=== PATIENT | female | born 1950 | race Caucasian/White ===

== ENCOUNTER 2018-06-09 09:46 | Day surgery (SDC) | payer BC ==
[2018-06-08 10:31] VITALS: BMI 29.2
[2018-06-09 11:58] VITALS: TEMP 97.6
[2018-06-09 13:05] VITALS: BP 142/73; PULSE 83
--- NOTE | 2018-06-12 12:13 | PATH ---
Surgical Pathology Report Patient Name: DEVAN GLOVER [facility]. Rec. #: [id number] /Age/Gender: 1950 (Age: 67) / F Account: [id number] Location: U-ENDOSCOPY Taken: 06/09/2018 Received: 06/09/2018 Reported: 06/12/2018 Physicians: Fany Landeros M.D. Specimen(s) Received A: DUODENUM BULB B: ANTRUM C: RIGHT COLON POLYP Clinical History Anemia and screening Postoperative diagnosis: GERD, atrophic gastritis, diverticulosis, right colon polyp Final Diagnosis A. DUODENUM, SECOND PORTION AND BULB, BIOPSY: DUODENAL MUCOSA WITH NO PATHOLOGIC CHANGES. NO HISTOLOGIC EVIDENCE OF GLUTEN SENSITIVE ENTEROPATHY (CELIAC SPRUE) IDENTIFIED. B. STOMACH, ANTRUM, BIOPSY: GASTRIC MUCOSA WITH FOCAL ULCERATION, ACUTE AND CHRONIC INFLAMMATION, AND REACTIVE CHANGES. IMMUNOSTAIN FOR H. PYLORI IS NEGATIVE. C. COLON, RIGHT, BIOPSY: HYPERPLASTIC POLYP. Electronically Signed Crow Bingham M.D. Gross Description A. Received in formalin, labeled "second portion of duodenum and bulb" are 3 ferris, irregular portions of soft tissue ranging from 0.4-0.6 cm. in greatest dimension. The specimens are submitted in toto in one cassette. B. Received in formalin, labeled "antrum biopsy" are 4 ferris, irregular portions of soft tissue ranging from 0.1-0.4 cm. in greatest dimension. The specimens are submitted in toto in one cassette. C. Received in formalin, labeled "right colon polyp biopsy" are 6 ferris, irregular portions of soft tissue ranging from 0.1-0.4 cm. in greatest dimension. The specimens are submitted in toto in one cassette. 06/09/2018 saudi06/09/2018
== END 2018-06-09 13:06 | disposition home or self-care (01) ==
LOC: JASU-ENDO 09:46
PROVIDERS: ATTEND Internal Medicine Gastroenterology
PROC: 0DB68ZX Excision of Stomach, Via Natural or Artificial Opening Endoscopic, Diagnostic (ICD-10-PCS; 2018-06-09)
PROC: 0DBK8ZX Excision of Ascending Colon, Via Natural or Artificial Opening Endoscopic, Diagnostic (ICD-10-PCS; principal; 2018-06-09 10:30)
DX: Z12.11 Encounter for screening for malignant neoplasm of colon (principal); D12.2 Benign neoplasm of ascending colon; K57.30 Diverticulosis of large intestine without perforation or abscess without bleeding; K64.8 Other hemorrhoids; D64.9 Anemia, unspecified; K21.0 Gastro-esophageal reflux disease with esophagitis; K22.10 Ulcer of esophagus without bleeding; K29.70 Gastritis, unspecified, without bleeding
CPT/HCPCS: 88305-TC; 88342-TC

== ENCOUNTER 2020-02-06 15:26 | Emergency (ER) | payer BC | END 2020-02-06 15:38 | disposition home or self-care (01) | LOC: JVIRT 15:26 | DX: Z03.818 Encounter for observation for suspected exposure to other biological agents ruled out (principal) | CPT/HCPCS: C9803; Q3014-GT; U0003 ==

== ENCOUNTER 2021-05-01 09:35 | Emergency (ER) | payer BC ==
[2021-05-01 10:11] VITALS: BP 156/87; PULSE 96; TEMP 98.6; BMI 28.7
[2021-05-01] MEDS ORDERED: oxyCODONE HCL 5 MG TABLET PO ONE (10:23)
[2021-05-01] MEDS ORDERED: oxyCODONE HCL 5 MG TABLET ONE (10:29)
== END 2021-05-01 12:32 | disposition home or self-care (01) ==
LOC: FER 09:35
DX: M25.562 Pain in left knee (principal); W01.0XXA Fall on same level from slipping, tripping and stumbling without subsequent striking against object, initial encounter
CPT/HCPCS: 73562-TC-LT-FY; 73610-TC-LT-FY; 99284-25

== ENCOUNTER 2021-07-28 02:01 | Observation (INO) | payer BC, MEDICARE ==
[2021-07-28] MEDS ORDERED: ONDANSETRON 4 MG/2 ML VIAL ONE ×2 (02:11→04:19)
[2021-07-28] MEDS ORDERED: SODIUM CHLORIDE 0.9% 1000 ML INFUS.BAG IV ONE ×2 (02:16→04:42)
[2021-07-28] MEDS ORDERED: ONDANSETRON 4 MG/2 ML VIAL IVPUSH ONE ×2 (02:16→04:42)
[2021-07-28 02:27] VITALS: BMI 27.8
[2021-07-28] MEDS ORDERED: morphine SULFATE 4 MG/ML VIAL ONE (02:27)
[2021-07-28] MEDS ORDERED: morphine CARPU-JECT 4 MG/1 ML DISP.SYRIN IVPUSH ONE (02:29)
[2021-07-28 02:55] LABS: BASO % 0.4 % (0-2.0); HEMATOCRIT 39.9 % (32.4-45.2); HEMOGLOBIN 12.9 GM/dL (10.7-15.3); LYMPH % 7.7 % (8-40); MCHC 32.4 g/dl (32.0-36.0); MEAN CELL VOLUME 86.3 fl (80-96); MEAN PLT VOLUME 9.4 fl (7.5-11.1); MONO % 1.6 % (3.8-10.2); NEUT % 90.3 % (42.8-82.8); PLATELET COUNT 348 10^3/uL (134-434); RBC 4.62 M/mm3 (3.60-5.2); WHITE BLOOD COUNT 11.9 K/mm3 (4.0-10.0)
[2021-07-28 03:24] LABS: CALCIUM 10.2 mg/dL (8.5-10.1)
[2021-07-28 03:25] LABS: BLOOD UREA NITROGEN 25.4 mg/dL (7-18)
[2021-07-28 03:29] LABS: BILIRUBIN,TOTAL 0.6 mg/dL (0.2-1); TOT PROT 7.5 g/dl (6.4-8.2)
[2021-07-28 03:45] LABS: LACTIC ACID 2.3 mmol/L (0.4-2.0)
[2021-07-28] MEDS ORDERED: MAG HYDROX/AL HYDROX/SIMETH 30 ML UNIT-DOSE CUP PO ONE (04:58)
[2021-07-28] MEDS ORDERED: ACETAMINOPHEN 1000 MG/100 ML BAG IVPB ONE (04:58)
[2021-07-28] MEDS ORDERED: FAMOTIDINE 20 MG/50 ML IVPB 20 MG/50 ML MG IVPB ONE ×2 (04:58→05:06)
[2021-07-28] MEDS ORDERED: CIPROFLOXACIN 400 MG/D5W 400 MG/200 ML IVPB IVPB ONE ×2 (04:59→05:07)
[2021-07-28] MEDS ORDERED: MAG HYDROX/AL HYDROX/SIMETH 30 ML UNIT-DOSE CUP ONE (05:07)
[2021-07-28] MEDS ORDERED: ACETAMINOPHEN INJECTION 100 ML IVPB ONE (05:13)
[2021-07-28 06:02] LABS: EPI CELLS 7 /uL (0-25.1); HYALINE CASTS 2 /uL (0-3.1); PH,URINE 6.5 (5.0-8.0); URINE APPEARANCE CLEAR; URINE BACTERIA 5 /uL (0-1359); URINE BILIRUBIN NEGATIVE (NEGATIVE); URINE COLOR YELLOW; URINE GLUCOSE (UA) NEGATIVE (NEGATIVE); URINE KETONE 1+ (NEGATIVE); URINE LEUK ESTERASE NEGATIVE (NEGATIVE); URINE NITRITE NEGATIVE (NEGATIVE); URINE PROTEIN 2+ (NEGATIVE); URINE RBC 3 /uL (0-23.9); URINE UROBILINOGEN 0.2 mg/dL (0.2-1.0); URINE WBC 20 /uL (0-25.8)
[2021-07-28] MEDS: DEXTROSE 5%-0.45% SALINE 1,000 ML IV SCH (06:50)
[2021-07-28] MEDS ORDERED: ONDANSETRON 4 MG/2 ML VIAL IVPUSH PRN (10:00)
[2021-07-28] MEDS: ALLOPURINOL 100 MG TABLET (FP) PO SCH (10:18)
[2021-07-28] MEDS: LEVOTHYROXINE NA 75 MCG TABLET (FP) PO SCH (10:18)
[2021-07-28] MEDS: VERAPAMIL HCL 240 MG E.R. TABLET PO SCH (10:18)
[2021-07-28] MEDS: ASPIRIN COATED 81 MG TABLET.EC PO SCH (10:19)
[2021-07-28] MEDS: ACETAMINOPHEN 1000 MG/100 ML BAG IVPB SCH ×3 (10:52→22:07)
[2021-07-28] MEDS ORDERED: ACETAMINOPHEN 1000 MG/100 ML BAG IVPB PRN (11:00)
[2021-07-28] MEDS: ENOXAPARIN NA (PORCINE) 40 MG/0.4 ML DISP.SYRIN SQ SCH (11:43)
[2021-07-28] MEDS ORDERED: IBUPROFEN 400 MG TABLET (FP) PO ONE (14:04)
[2021-07-28] MEDS ORDERED: DEXTROSE 5%-WATER 100 ML IVPB ONE (17:01)
[2021-07-28] MEDS: CEFTRIAXONE 2 GM in DEXTROSE 5%-WATER 2 GM/100 ML BAG IVPB SCH (17:38)
[2021-07-28] MEDS ORDERED: LOSARTAN POTASSIUM 50 MG TABLET PO SCH ×3 (22:00→22:01)
[2021-07-28] MEDS ORDERED: GABAPENTIN 300 MG CAPSULE PO SCH (22:00)
[2021-07-28] MEDS ORDERED: MELATONIN 5 MG TABLETS PO ONE (22:30)
[2021-07-29] MEDS: ACETAMINOPHEN 1000 MG/100 ML BAG IVPB SCH ×2 (05:49→10:17)
[2021-07-29] MEDS: DEXTROSE 5%-0.45% SALINE 1,000 ML IV SCH (05:50)
[2021-07-29] MEDS: LEVOTHYROXINE NA 75 MCG TABLET (FP) PO SCH (06:07)
[2021-07-29 07:39] LABS: HEMOGLOBIN 10.8 G/dL (10.7-15.3); MCH 28.8 pg (25.7-33.7); MCHC 32.8 g/dl (32.0-36.0); MEAN CELL VOLUME 87.7 fl (80-96); MEAN PLT VOLUME 9.3 fl (7.5-11.1); PLATELET COUNT 251.2 10^3/uL (134-434); RBC 3.76 10^6/uL (3.60-5.2); RDW 15.6 % (11.6-15.6); WHITE BLOOD COUNT 9.2 10^3/uL (4.0-10.8)
[2021-07-29 07:48] LABS: BILIRUBIN,TOTAL 0.4 mg/dl (0.2-1); TOT PROT 5.2 g/dl (6.4-8.2)
[2021-07-29] MEDS ORDERED: DEXTROSE 5%-WATER 100 ML IVPB ONE (10:13)
[2021-07-29] MEDS: VERAPAMIL HCL 240 MG E.R. TABLET PO SCH (10:21)
[2021-07-29] MEDS: CEFTRIAXONE 2 GM in DEXTROSE 5%-WATER 2 GM/100 ML BAG IVPB SCH (10:21)
[2021-07-29] MEDS: ALLOPURINOL 100 MG TABLET (FP) PO SCH (10:21)
[2021-07-29] MEDS: ENOXAPARIN NA (PORCINE) 40 MG/0.4 ML DISP.SYRIN SQ SCH (10:21)
[2021-07-29] MEDS: ASPIRIN COATED 81 MG TABLET.EC PO SCH (10:22)
[2021-07-29] MEDS ORDERED: LOPERAMIDE HCL 2 MG CAPSULE PO ONE (10:25)
[2021-07-29 14:12] VITALS: BP 135/66; PULSE 95; TEMP 98.4
== END 2021-07-29 15:13 | disposition home or self-care (01) ==
LOC: FER 02:01 → FM/S 06:23
PROVIDERS: ADMIT Internal Medicine; ATTEND Nurse Practitioner Acute Care
PROC: 3E03329 Introduction of Other Anti-infective into Peripheral Vein, Percutaneous Approach (ICD-10-PCS; principal; 2021-07-28)
PROC: 3E033GC Introduction of Other Therapeutic Substance into Peripheral Vein, Percutaneous Approach (ICD-10-PCS; 2021-07-28)
PROC: 3E023GC Introduction of Other Therapeutic Substance into Muscle, Percutaneous Approach (ICD-10-PCS; 2021-07-28)
PROC: 3E033NZ Introduction of Analgesics, Hypnotics, Sedatives into Peripheral Vein, Percutaneous Approach (ICD-10-PCS; 2021-07-28)
PROC: 3E0337Z Introduction of Electrolytic and Water Balance Substance into Peripheral Vein, Percutaneous Approach (ICD-10-PCS; 2021-07-28)
DX: K52.9 Noninfective gastroenteritis and colitis, unspecified (principal); R11.10 Vomiting, unspecified; R10.13 Epigastric pain; I10 Essential (primary) hypertension; E03.9 Hypothyroidism, unspecified; M10.9 Gout, unspecified; Z29.8 Encounter for other specified prophylactic measures; D72.829 Elevated white blood cell count, unspecified
CPT/HCPCS: 0241U-QW; 36415; 74177-TC; 76705-TC; 80053; 81003; 83605; 83690; 84484; 85025; 85027; 87807; 93005; 96365; 96366; 96367; 96372; 96375; 96376; 99285-25; C9803-CS; G0378; Q9967; U0003; U0005

== ENCOUNTER 2022-11-05 03:53 | Day surgery (SDC) | payer OTHER, MEDICARE ==
[2022-11-04 09:03] VITALS: BMI 29.8
[2022-11-05] MEDS ORDERED: LIDOCAINE HCL 1%, 10 MG/ML (20ML VIAL) INF ONE ×2 (13:47)
[2022-11-05] MEDS ORDERED: PROPOFOL 20 ML ONE (15:30)
[2022-11-05] MEDS ORDERED: MIDAZOLAM HCL 2 MG/2 ML SINGLE DOSE VIAL ONE (15:30)
[2022-11-05] MEDS ORDERED: KETOROLAC TROMETHAMINE 30 MG/1 ML VIAL ONE (15:49)
[2022-11-05] MEDS ORDERED: ONDANSETRON 4 MG/2 ML VIAL ONE (15:49)
[2022-11-05] MEDS ORDERED: DEXAMETHASONE SOD PHOSPHATE 4 MG/1 ML VIAL ONE (15:49)
[2022-11-05] MEDS ORDERED: ONDANSETRON 4 MG/2 ML VIAL IVPUSH PRN (16:18)
[2022-11-05] MEDS ORDERED: ACETAMINOPHEN INJECTION 100 ML IVPB ONE (16:18)
[2022-11-05] MEDS ORDERED: ACETAMINOPHEN 325 MG TABLET (FP) PO PRN (16:18)
[2022-11-05] MEDS ORDERED: ACETAMINOPHEN 1000 MG/100 ML BAG IVPB ONE ×2 (16:19→16:30)
[2022-11-05] MEDS ORDERED: LACTATED RINGERS SOLUTION 1,000 ML IV SCH (16:30)
[2022-11-05 17:09] LABS: INR 1.03 (0.83-1.09); PROTHROMBIN TIME (PATIENT) 11.9 SEC (9.7-13.0)
[2022-11-05 17:52] VITALS: RESP 18
[2022-11-05 18:57] VITALS: BP 128/64; PULSE 91; TEMP 98.4
== END 2022-11-05 18:30 | disposition home or self-care (01) ==
LOC: JASU-SURG 03:53
PROVIDERS: ATTEND Surgery
PROC: 03BT0ZX Excision of Left Temporal Artery, Open Approach, Diagnostic (ICD-10-PCS; principal; 2022-11-05 15:30)
DX: R51.9 Headache, unspecified (principal)
CPT/HCPCS: 36415; 85610; 88305-TC; 93005; 93010; 94760

== ENCOUNTER 2022-11-29 19:40 | Emergency (ER) | payer OTHER, MEDICARE ==
[2022-11-29 19:53] VITALS: TEMP 98.2; BMI 28.3
[2022-11-29] MEDS ORDERED: FAMOTIDINE 20 MG/50 ML IVPB 20 MG/50 ML MG IVPB ONE ×2 (20:04→20:11)
[2022-11-29] MEDS ORDERED: SODIUM CHLORIDE 1,000 ML IV STA (20:04)
[2022-11-29] MEDS ORDERED: ONDANSETRON 4 MG/2 ML VIAL IVPUSH ONE (20:05)
[2022-11-29] MEDS ORDERED: ONDANSETRON 4 MG/2 ML VIAL ONE (20:25)
[2022-11-29 20:33] LABS: HEMATOCRIT 41.7 % (32.4-45.2); HEMOGLOBIN 13.6 G/dL (10.7-15.3); MCH 29.1 pg (25.7-33.7); MCHC 32.5 g/dl (32.0-36.0); MEAN CELL VOLUME 89.2 fl (80-96); MEAN PLT VOLUME 8.6 fl (7.5-11.1); PLATELET COUNT 320.5 10^3/uL (134-434); RBC 4.67 10^6/uL (3.60-5.2); RDW 15.4 % (11.6-15.6); WHITE BLOOD COUNT 13.7 10^3/uL (4.0-10.8)
[2022-11-29 20:52] LABS: ALBUMIN 4.2 g/dl (3.4-5.0); BLOOD UREA NITROGEN 30.6 mg/dl (7-18); CREATININE 1.1 mg/dl (0.6-1.3); POTASSIUM 3.9 mmol/L (3.5-5.1); SGOT/AST 18.9 U/L (15-37); SGPT/ALT 18.7 U/L (7-52); TOT PROT 6.5 g/dl (6.4-8.2)
[2022-11-29] MEDS ORDERED: ACETAMINOPHEN 1000 MG/100 ML BAG IVPB ONE (21:07)
[2022-11-29] MEDS ORDERED: ACETAMINOPHEN INJECTION 100 ML IVPB ONE (21:09)
[2022-11-29 21:11] LABS: MAGNESIUM 1.5 mg/dL (1.8-2.4)
[2022-11-29] MEDS ORDERED: MAGNESIUM 1GM/D5W - 1 GM/100 ML IVPB IVPB ONE ×2 (21:23→21:37)
[2022-11-29 22:23] LABS: BILIRUBIN,TOTAL 1.1 mg/dL (0.2-1)
[2022-11-29] MEDS ORDERED: SODIUM CHLORIDE 0.9% 500 ML INFUS.BAG IV ONE (22:32)
[2022-11-29 23:15] VITALS: BP 109/60; PULSE 106; RESP 18
== END 2022-11-30 00:32 | disposition home or self-care (01) ==
LOC: FER 19:40
PROC: 3E033GC Introduction of Other Therapeutic Substance into Peripheral Vein, Percutaneous Approach (ICD-10-PCS; principal; 2022-11-29)
PROC: 3E03329 Introduction of Other Anti-infective into Peripheral Vein, Percutaneous Approach (ICD-10-PCS; 2022-11-29)
PROC: 3E033GC Introduction of Other Therapeutic Substance into Peripheral Vein, Percutaneous Approach (ICD-10-PCS; 2022-11-29)
PROC: 3E033GC Introduction of Other Therapeutic Substance into Peripheral Vein, Percutaneous Approach (ICD-10-PCS; 2022-11-29)
PROC: 3E0337Z Introduction of Electrolytic and Water Balance Substance into Peripheral Vein, Percutaneous Approach (ICD-10-PCS; 2022-11-29)
DX: R11.2 Nausea with vomiting, unspecified (principal); R10.9 Unspecified abdominal pain; Z20.822 Contact with and (suspected) exposure to COVID-19
CPT/HCPCS: 0241U-QW; 36415; 71045-TC-FY; 76705-TC; 80053; 83690; 83735; 84484; 85027; 93005; 93010; 99285-25

== ENCOUNTER 2022-11-30 15:42 | Inpatient (IN) | payer OTHER, MEDICARE ==
[2022-11-30] MEDS ORDERED: FAMOTIDINE 20 MG/50 ML IVPB 20 MG/50 ML MG IVPB ONE ×2 (16:34→16:41)
[2022-11-30] MEDS ORDERED: SODIUM CHLORIDE 1,000 ML IV ONE (16:34)
[2022-11-30] MEDS ORDERED: MAG HYDROX/AL HYDROX/SIMETH -MYLANTA- ORAL SUSPENSION PO ONE (16:34)
[2022-11-30] MEDS ORDERED: MAG HYDROX/AL HYDROX/SIMETH 30 ML UNIT-DOSE CUP ONE (16:41)
[2022-11-30 16:52] LABS: HEMATOCRIT 39.7 % (32.4-45.2); MCH 29.6 pg (25.7-33.7); MCHC 32.6 g/dl (32.0-36.0); MEAN CELL VOLUME 90.6 fl (80-96); MEAN PLT VOLUME 8.8 fl (7.5-11.1); PLATELET COUNT 302.6 10^3/uL (134-434); RBC 4.38 10^6/uL (3.60-5.2); RDW 15.6 % (11.6-15.6); WHITE BLOOD COUNT 17.9 10^3/uL (4.0-10.8)
[2022-11-30] MEDS ORDERED: ONDANSETRON 4 MG/2 ML VIAL IVPUSH ONE (17:01)
[2022-11-30] MEDS ORDERED: ONDANSETRON 4 MG/2 ML VIAL ONE (17:07)
[2022-11-30 17:08] LABS: ALBUMIN 3.9 g/dl (3.4-5.0); BLOOD UREA NITROGEN 24.8 mg/dl (7-18); CALCIUM 9.5 mg/dl (8.5-10.1); CREATININE 1.2 mg/dl (0.6-1.3); POTASSIUM 4.2 mmol/L (3.5-5.1); SGOT/AST 19.8 U/L (15-37); SGPT/ALT 18.6 U/L (7-52); TOT PROT 6.1 g/dl (6.4-8.2)
[2022-11-30 17:24] LABS: PLATELET ESTIMATE ADEQUATE
[2022-11-30] MEDS ORDERED: PANTOPRAZOLE SODIUM 40 MG VIAL IVPUSH ONE (17:41)
[2022-11-30] MEDS ORDERED: ACETAMINOPHEN 1000 MG/100 ML BAG IVPB ONE (17:41)
[2022-11-30] MEDS ORDERED: ACETAMINOPHEN INJECTION 100 ML IVPB ONE ×2 (18:48→18:49)
[2022-11-30] MEDS ORDERED: PANTOPRAZOLE SODIUM 40 MG VIAL ONE (18:49)
[2022-11-30] MEDS ORDERED: morphine CARPU-JECT 2 MG/1 ML DISP.SYRIN IVPUSH ONE (18:53)
[2022-11-30 18:54] LABS: BILIRUBIN,TOTAL 1.3 mg/dL (0.2-1)
[2022-11-30] MEDS ORDERED: morphine SULFATE 4 MG/ML VIAL ONE (18:55)
[2022-11-30] MEDS: SODIUM CHLORIDE 1,000 ML IV SCH (20:24)
[2022-11-30] MEDS: ENOXAPARIN NA (PORCINE) 40 MG/0.4 ML DISP.SYRIN SQ SCH (21:22)
[2022-11-30 22:38] VITALS: BMI 29.0
[2022-11-30] MEDS ORDERED: MELATONIN 5 MG TABLETS PO PRN (23:21)
[2022-11-30] MEDS ORDERED: GABAPENTIN 300 MG CAPSULE PO PRN (23:21)
[2022-11-30] MEDS ORDERED: MELATONIN 5 MG TABLETS PO ONE (23:24)
[2022-11-30] MEDS ORDERED: predniSONE 5 MG TABLET (UD) PO SCH (23:30)
[2022-12-01 02:06] VITALS: RESP 18
[2022-12-01] MEDS ORDERED: LEVOTHYROXINE NA 75 MCG TABLET (FP) PO SCH (07:00)
[2022-12-01 08:27] LABS: HEMATOCRIT 33.6 % (32.4-45.2); HEMOGLOBIN 10.4 G/dL (10.7-15.3); MCH 28.2 pg (25.7-33.7); MCHC 31.1 g/dl (32.0-36.0); MEAN CELL VOLUME 90.8 fl (80-96); MEAN PLT VOLUME 8.9 fl (7.5-11.1); RDW 16.2 % (11.6-15.6); WHITE BLOOD COUNT 11.4 10^3/uL (4.0-10.8)
[2022-12-01 08:45] LABS: BLOOD UREA NITROGEN 21.9 mg/dl (7-18); CALCIUM 8.3 mg/dl (8.5-10.1); MAGNESIUM 1.8 mg/dL (1.8-2.4); POTASSIUM 4.2 mmol/L (3.5-5.1)
[2022-12-01] MEDS ORDERED: MAG HYDROX/AL HYDROX/SIMETH 30 ML UNIT-DOSE CUP PO PRN (09:06)
[2022-12-01] MEDS: ALLOPURINOL 300 MG TABLET (FP) PO SCH (09:31)
[2022-12-01] MEDS: PANTOPRAZOLE 40 MG TABLET PO SCH (09:31)
[2022-12-01] MEDS: ENOXAPARIN NA (PORCINE) 40 MG/0.4 ML DISP.SYRIN SQ SCH (09:31)
[2022-12-01] MEDS: ASPIRIN COATED 81 MG TABLET.EC PO SCH (09:31)
[2022-12-01] MEDS ORDERED: predniSONE 5 MG TABLET (UD) PO SCH (10:00)
[2022-12-01] MEDS: VERAPAMIL HCL 240 MG E.R. TABLET PO SCH (10:22)
[2022-12-01] MEDS: ACETAMINOPHEN 1000 MG/100 ML BAG IVPB PRN (15:55)
[2022-12-01] MEDS: SODIUM CHLORIDE 1,000 ML IV SCH (21:25)
[2022-12-02] MEDS: predniSONE 5 MG TABLET (UD) PO SCH (09:19)
[2022-12-02] MEDS: PANTOPRAZOLE 40 MG TABLET PO SCH (09:19)
[2022-12-02] MEDS: ASPIRIN COATED 81 MG TABLET.EC PO SCH (09:20)
[2022-12-02] MEDS: ENOXAPARIN NA (PORCINE) 40 MG/0.4 ML DISP.SYRIN SQ SCH (09:20)
[2022-12-02] MEDS: ALLOPURINOL 300 MG TABLET (FP) PO SCH (09:20)
[2022-12-02] MEDS: VERAPAMIL HCL 240 MG E.R. TABLET PO SCH (09:20)
[2022-12-02] MEDS: ACETAMINOPHEN 1000 MG/100 ML BAG IVPB PRN (13:31)
[2022-12-02] MEDS: SODIUM CHLORIDE 1,000 ML IV SCH (21:41)
[2022-12-03 09:48] VITALS: BP 110/55; PULSE 83; TEMP 97.7
[2022-12-03] MEDS: ALLOPURINOL 300 MG TABLET (FP) PO SCH (10:09)
[2022-12-03] MEDS: VERAPAMIL HCL 240 MG E.R. TABLET PO SCH (10:09)
[2022-12-03] MEDS: ASPIRIN COATED 81 MG TABLET.EC PO SCH (10:09)
[2022-12-03] MEDS: ENOXAPARIN NA (PORCINE) 40 MG/0.4 ML DISP.SYRIN SQ SCH (10:09)
[2022-12-03] MEDS: PANTOPRAZOLE 40 MG TABLET PO SCH (10:09)
[2022-12-03] MEDS: predniSONE 5 MG TABLET (UD) PO SCH (10:09)
== END 2022-12-03 12:11 | disposition home or self-care (01) | DRG 392 ==
LOC: FER 15:42 → FM/S 19:22
PROVIDERS: ADMIT Internal Medicine
DX: K29.60 Other gastritis without bleeding (principal); N17.9 Acute kidney failure, unspecified; I10 Essential (primary) hypertension; M10.9 Gout, unspecified; E03.9 Hypothyroidism, unspecified; K21.9 Gastro-esophageal reflux disease without esophagitis; E66.9 Obesity, unspecified; E78.5 Hyperlipidemia, unspecified; Z68.29 Body mass index [BMI] 29.0-29.9, adult; K76.0 Fatty (change of) liver, not elsewhere classified; R51.9 Headache, unspecified; K80.20 Calculus of gallbladder without cholecystitis without obstruction; T38.0X5A Adverse effect of glucocorticoids and synthetic analogues, initial encounter; M35.3 Polymyalgia rheumatica
CPT/HCPCS: 0241U-QW; 36415; 71045-TC-FY; 76705-TC; 80048; 80053; 82150; 83690; 83735; 84439; 84443; 84484; 85027; 87102; 87210; 93005; 93010; 99285-25

== ENCOUNTER 2023-04-01 21:35 | Observation (INO) | payer OTHER, MEDICARE ==
[2023-04-01] MEDS ORDERED: ONDANSETRON 4 MG/2 ML VIAL IVPB ONE (21:51)
[2023-04-01] MEDS ORDERED: SODIUM CHLORIDE 1,000 ML IV ONE (21:51)
[2023-04-01] MEDS ORDERED: KETOROLAC TROMETHAMINE 30 MG/1 ML VIAL IVPUSH ONE (21:51)
[2023-04-01] MEDS ORDERED: ONDANSETRON 4 MG/2 ML VIAL ONE (22:05)
[2023-04-01] MEDS ORDERED: KETOROLAC TROMETHAMINE 30 MG/1 ML VIAL ONE (22:05)
[2023-04-01 22:21] LABS: HEMATOCRIT 39.4 % (32.4-45.2); HEMOGLOBIN 12.7 G/dL (10.7-15.3); MCH 28.2 pg (25.7-33.7); MCHC 32.2 g/dl (32.0-36.0); MEAN CELL VOLUME 87.4 fl (80-96); MEAN PLT VOLUME 9.3 fl (7.5-11.1); PLATELET COUNT 311.9 10^3/uL (134-434); RBC 4.51 10^6/uL (3.60-5.2); RDW 17.9 % (11.6-15.6); WHITE BLOOD COUNT 12.4 10^3/uL (4.0-10.8)
[2023-04-01 22:56] LABS: ALBUMIN 4.1 g/dl (3.4-5.0); BILIRUBIN,TOTAL 0.6 mg/dl (0.2-1); CALCIUM 9.7 mg/dl (8.5-10.1); CREATININE 0.8 mg/dl (0.6-1.3); POTASSIUM 3.8 mmol/L (3.5-5.1); TOT PROT 5.9 g/dl (6.4-8.2)
[2023-04-01] MEDS ORDERED: morphine CARPU-JECT 4 MG/1 ML DISP.SYRIN IVPUSH ONE (23:31)
[2023-04-01] MEDS ORDERED: METOCLOPRAMIDE HCL INJECTION 10 MG/2 ML VIAL ONE (23:32)
[2023-04-01] MEDS ORDERED: METOCLOPRAMIDE HCL INJECTION 10 MG/2 ML VIAL IVPUSH ONE (23:32)
[2023-04-01] MEDS ORDERED: morphine SULFATE 4 MG/ML VIAL ONE (23:32)
[2023-04-01] MEDS ORDERED: PIPERACILLIN/TAZOB 4.5 GM 4.5 GM in DEXTROSE 5%-WATER 100 ML IVPB ONE (23:46)
[2023-04-01] MEDS ORDERED: PIPERACILLIN/TAZOBACTAM 4.5 GM VIAL IVPB ONE (23:48)
[2023-04-02] MEDS ORDERED: DEXTROSE 5%-0.45% SALINE 1,000 ML IV SCH (00:45)
[2023-04-02] MEDS ORDERED: ACETAMINOPHEN 1000 MG/100 ML BAG IVPB PRN (00:48)
[2023-04-02 00:58] VITALS: BMI 30.2
[2023-04-02] MEDS ORDERED: morphine SULFATE 4 MG/ML VIAL IVPUSH PRN (04:00)
[2023-04-02] MEDS ORDERED: ONDANSETRON 4 MG/2 ML VIAL IVPUSH PRN (04:00)
[2023-04-02 06:33] VITALS: RESP 18
[2023-04-02 08:04] LABS: HEMATOCRIT 36.8 % (32.4-45.2); HEMOGLOBIN 11.7 G/dL (10.7-15.3); MCH 27.8 pg (25.7-33.7); MCHC 31.8 g/dl (32.0-36.0); MEAN CELL VOLUME 87.4 fl (80-96); MEAN PLT VOLUME 9.5 fl (7.5-11.1); PLATELET COUNT 321.8 10^3/uL (134-434); RBC 4.21 10^6/uL (3.60-5.2); RDW 17.7 % (11.6-15.6); WHITE BLOOD COUNT 14.4 10^3/uL (4.0-10.8)
[2023-04-02 09:40] LABS: CALCIUM 9.5 mg/dl (8.5-10.1); POTASSIUM 3.9 mmol/L (3.5-5.1)
[2023-04-02] MEDS ORDERED: PANTOPRAZOLE 40 MG TABLET PO SCH ×2 (10:00→12:45)
[2023-04-02] MEDS ORDERED: PIPERACILLIN/TAZOB 3.375 GM 3.375 GM in DEXTROSE 5%-WATER - 50 ML IVPB SCH (10:00)
[2023-04-02 10:42] VITALS: BP 144/60; PULSE 108; TEMP 97.8
[2023-04-02] MEDS ORDERED: LACTATED RINGERS SOLUTION 1000 ML INFUS.BAG IV ONE (12:00)
[2023-04-02] MEDS ORDERED: GABAPENTIN 300 MG CAPSULE PO PRN (12:44)
[2023-04-02] MEDS ORDERED: NORTRIPTYLINE HCL 25 MG CAPSULE PO SCH (12:45)
[2023-04-02] MEDS ORDERED: PATIENT'S OWN MEDICATION (NON-FORMULARY) (Telmisartan [Telmisartan] 40 MG Tablet) PO SCH (12:45)
[2023-04-02] MEDS ORDERED: VERAPAMIL HCL 240 MG PO SCH (12:45)
[2023-04-02] MEDS ORDERED: CYCLOBENZAPRINE HCL 5 MG TABLET PO PRN (12:46)
[2023-04-02 12:56] LABS: PLATELET ESTIMATE SLT INCREASE
[2023-04-02] MEDS ORDERED: HEPARIN NA (PORCINE) 5,000 UNITS/ML 1ML VIAL SQ SCH (14:00)
[2023-04-02] MEDS ORDERED: PATIENT'S OWN MEDICATION (NON-FORMULARY) (Melatonin [Melatonin] 3 MG Tablet) PO SCH (22:00)
[2023-04-03] MEDS ORDERED: predniSONE 10 MG TABLET (UD) PO SCH (10:00)
[2023-04-03] MEDS ORDERED: PIPERACILLIN/TAZOB 3.375 GM 3.375 GM in DEXTROSE 5%-WATER - 50 ML IVPB SCH (10:00)
[2023-04-03] MEDS ORDERED: ALLOPURINOL 300 MG TABLET (FP) PO SCH (10:00)
[2023-04-03] MEDS ORDERED: LEVOTHYROXINE NA 75 MCG TABLET (FP) PO SCH (10:00)
[2023-04-03] MEDS ORDERED: PATIENT'S OWN MEDICATION (NON-FORMULARY) (Multivitamin [Multivitamin] 1 EACH Tablet) PO SCH (10:00)
== END 2023-04-02 14:42 | disposition home or self-care (01) ==
LOC: FER 21:35 → INTOOBSV 23:51 → FM/S 23:51 → UNDOADMIN 04-02 00:25
PROVIDERS: ADMIT Internal Medicine; ATTEND Internal Medicine
PROC: 3E033GC Introduction of Other Therapeutic Substance into Peripheral Vein, Percutaneous Approach (ICD-10-PCS; principal; 2023-04-01)
PROC: 3E0337Z Introduction of Electrolytic and Water Balance Substance into Peripheral Vein, Percutaneous Approach (ICD-10-PCS; 2023-04-01)
PROC: 3E033NZ Introduction of Analgesics, Hypnotics, Sedatives into Peripheral Vein, Percutaneous Approach (ICD-10-PCS; 2023-04-01)
PROC: 3E0337Z Introduction of Electrolytic and Water Balance Substance into Peripheral Vein, Percutaneous Approach (ICD-10-PCS; 2023-04-01)
DX: K29.00 Acute gastritis without bleeding (principal); Z79.52 Long term (current) use of systemic steroids; R10.11 Right upper quadrant pain; I10 Essential (primary) hypertension; M35.3 Polymyalgia rheumatica; K80.20 Calculus of gallbladder without cholecystitis without obstruction; E03.9 Hypothyroidism, unspecified; M10.9 Gout, unspecified; D72.829 Elevated white blood cell count, unspecified; F41.8 Other specified anxiety disorders; K92.9 Disease of digestive system, unspecified; G62.9 Polyneuropathy, unspecified; R10.9 Unspecified abdominal pain; R11.10 Vomiting, unspecified
CPT/HCPCS: 36415; 76705-TC; 80048; 80053; 81003; 81015; 82550; 83605; 83690; 84484; 85027; 87040; 87086; 93005; 96361; 96365; 96366; 96367; 96375; 96376; 99285-25; G0378

== ENCOUNTER 2023-04-11 20:36 | Emergency (ER) | payer OTHER, MEDICARE ==
[2023-04-11 20:47] VITALS: BP 135/63; PULSE 104; RESP 16; TEMP 98.1; BMI 29.2
[2023-04-11] MEDS ORDERED: SODIUM CHLORIDE 0.9% 500 ML INFUS.BAG IV ONE (21:06)
[2023-04-11] MEDS ORDERED: ACETAMINOPHEN 1000 MG/100 ML BAG IVPB ONE (21:06)
[2023-04-11] MEDS ORDERED: ONDANSETRON 4 MG/2 ML VIAL IVPUSH ONE ×2 (21:06→22:07)
[2023-04-11] MEDS ORDERED: ACETAMINOPHEN INJECTION 100 ML IVPB ONE (21:13)
[2023-04-11] MEDS ORDERED: ONDANSETRON 4 MG/2 ML VIAL ONE ×2 (21:13→22:08)
[2023-04-11 21:37] LABS: HEMATOCRIT 41.6 % (32.4-45.2); HEMOGLOBIN 13.1 G/dL (10.7-15.3); MCH 27.8 pg (25.7-33.7); MCHC 31.4 g/dl (32.0-36.0); MEAN CELL VOLUME 88.6 fl (80-96); MEAN PLT VOLUME 9.7 fl (7.5-11.1); PLATELET COUNT 280.7 10^3/uL (134-434); RDW 17.4 % (11.6-15.6); WHITE BLOOD COUNT 8.9 10^3/uL (4.0-10.8)
[2023-04-11 21:43] LABS: EPITHELIAL CELLS 0-5 /hpf
[2023-04-11] MEDS ORDERED: CEFTRIAXONE 1,000 MG in DEXTROSE 5%-WATER - 50 ML IVPB ONE (21:43)
[2023-04-11] MEDS ORDERED: cefTRIAXone SODIUM 1 GM VIAL ONE (21:45)
[2023-04-11 21:55] LABS: ALBUMIN 4.3 g/dl (3.4-5.0); BILIRUBIN,TOTAL 0.6 mg/dl (0.2-1); CALCIUM 10.5 mg/dl (8.5-10.1); CREATININE 1.2 mg/dl (0.6-1.3); PLATELET ESTIMATE ADEQUATE; TOT PROT 6.2 g/dl (6.4-8.2)
== END 2023-04-11 22:44 | disposition home or self-care (01) ==
LOC: FER 20:36
PROC: 3E03329 Introduction of Other Anti-infective into Peripheral Vein, Percutaneous Approach (ICD-10-PCS; principal; 2023-04-11)
PROC: 3E033GC Introduction of Other Therapeutic Substance into Peripheral Vein, Percutaneous Approach (ICD-10-PCS; 2023-04-11)
PROC: 3E033GC Introduction of Other Therapeutic Substance into Peripheral Vein, Percutaneous Approach (ICD-10-PCS; 2023-04-11)
PROC: 3E033NZ Introduction of Analgesics, Hypnotics, Sedatives into Peripheral Vein, Percutaneous Approach (ICD-10-PCS; 2023-04-11)
DX: N12 Tubulo-interstitial nephritis, not specified as acute or chronic (principal); K80.51 Calculus of bile duct without cholangitis or cholecystitis with obstruction
CPT/HCPCS: 36415; 80053; 81003; 81015; 83690; 85027; 87086; 99284-25

== ENCOUNTER 2023-04-19 20:00 | Inpatient (IN) | payer OTHER, MEDICARE ==
[2023-04-19] MEDS ORDERED: KETOROLAC TROMETHAMINE 30 MG/1 ML VIAL ONE (20:38)
[2023-04-19] MEDS ORDERED: ONDANSETRON 4 MG/2 ML VIAL ONE ×2 (20:38→21:09)
[2023-04-19] MEDS: KETOROLAC TROMETHAMINE 30 MG/1 ML VIAL IVPUSH ONE (20:49)
[2023-04-19] MEDS: SODIUM CHLORIDE 1,000 ML IV ONE (20:49)
[2023-04-19] MEDS: ONDANSETRON 4 MG/2 ML VIAL IVPUSH ONE ×2 (20:50→21:15)
[2023-04-19 20:57] LABS: HEMOGLOBIN 13.9 G/dL (10.7-15.3); MCH 27.8 pg (25.7-33.7); MCHC 31.6 g/dl (32.0-36.0); MEAN CELL VOLUME 87.9 fl (80-96); MEAN PLT VOLUME 9.6 fl (7.5-11.1); PLATELET COUNT 293.7 10^3/uL (134-434); RDW 17.8 % (11.6-15.6); WHITE BLOOD COUNT 6.6 10^3/uL (4.0-10.8)
[2023-04-19] MEDS ORDERED: morphine SULFATE 4 MG/ML VIAL ONE (21:09)
[2023-04-19] MEDS: morphine CARPU-JECT 4 MG/1 ML DISP.SYRIN IVPUSH ONE (21:15)
[2023-04-19 21:17] LABS: ALBUMIN 4.3 g/dl (3.4-5.0); BILIRUBIN,TOTAL 0.6 mg/dl (0.2-1); CALCIUM 9.9 mg/dl (8.5-10.1); CREATININE 1.1 mg/dl (0.6-1.3); POTASSIUM 3.6 mmol/L (3.5-5.1); TOT PROT 6.3 g/dl (6.4-8.2)
[2023-04-19] MEDS ORDERED: PIPERACILLIN/TAZOBACTAM 4.5 GM VIAL IVPB ONE (22:17)
[2023-04-19] MEDS: PIPERACILLIN/TAZOB 4.5 GM 4.5 GM in DEXTROSE 5%-WATER 100 ML IVPB ONE (23:13)
[2023-04-19] MEDS ORDERED: ACETAMINOPHEN INJECTION 100 ML IVPB ONE (23:20)
[2023-04-19] MEDS: ACETAMINOPHEN 1000 MG/100 ML BAG IVPB ONE (23:22)
[2023-04-19] MEDS: SODIUM CHLORIDE 1,000 ML IV SCH (23:43)
[2023-04-20] MEDS ORDERED: ONDANSETRON 4 MG/2 ML VIAL IVPUSH PRN ×3 (04:30→15:19)
[2023-04-20] MEDS ORDERED: ACETAMINOPHEN 1000 MG/100 ML BAG IVPB PRN (05:00)
[2023-04-20 06:00] VITALS: BMI 28.7
[2023-04-20] MEDS: PIPERACILLIN/TAZOB 4.5 GM 4.5 GM in DEXTROSE 5%-WATER 100 ML IVPB SCH ×3 (09:21→17:37)
[2023-04-20 10:41] LABS: INR 1.17 (0.83-1.09); PROTHROMBIN TIME (PATIENT) 13.5 SEC (9.7-13.0)
[2023-04-20 10:54] LABS: POTASSIUM 3.8 mmol/L (3.5-5.1)
[2023-04-20 10:58] LABS: BLOOD UREA NITROGEN 16.6 mg/dL (7-18); CALCIUM 9.2 mg/dL (8.5-10.1)
[2023-04-20 11:02] LABS: CREATININE 1.1 mg/dL (0.55-1.3)
[2023-04-20 11:20] LABS: HEMATOCRIT 32.5 % (32.4-45.2); HEMOGLOBIN 10.8 GM/dL (10.7-15.3); MCH 28.6 pg (25.7-33.7); MCHC 33.3 g/dl (32.0-36.0); MEAN CELL VOLUME 85.7 fl (80-96); MEAN PLT VOLUME 9.2 fl (7.5-11.1); PLATELET COUNT 207 10^3/uL (134-434); RBC 3.79 M/mm3 (3.60-5.2); RDW 17.6 % (11.6-15.6); WHITE BLOOD COUNT 3.7 K/mm3 (4.0-10.0)
[2023-04-20] MEDS ORDERED: BUPIVACAINE HCL/PF 0.25% (2.5MG/ML) 10 ML VIAL ONE (12:36)
[2023-04-20] MEDS: BUPIVACAINE HCL/PF 0.25% (2.5MG/ML) 10 ML VIAL IJ ONE (13:22)
[2023-04-20 13:46] LABS: ANISOCYTOSIS 0; HELMET CELLS 0; HOWELL-JOLLY BODIES 0; MACROCYTOSIS 0; OVALOCYTE 0; ROULEAU 0; SICKELED CELLS 0; TARGET CELLS 0; TEAR DROP CELLS 0; TOXIC GRANULATION 0
[2023-04-20] MEDS: LACTATED RINGERS SOLUTION 1,000 ML IV SCH ×2 (14:15→15:25)
[2023-04-20] MEDS ORDERED: ONDANSETRON 4 MG/2 ML VIAL ONE (15:05)
[2023-04-20] MEDS: ONDANSETRON 4 MG/2 ML VIAL IVPUSH ONE (15:06)
[2023-04-20] MEDS ORDERED: GABAPENTIN 300 MG CAPSULE PO PRN (15:19)
[2023-04-20] MEDS ORDERED: hydrALAZINE HCL 20 MG/ML VIAL ONE (15:49)
[2023-04-20] MEDS: hydrALAZINE HCL 20 MG/ML VIAL IVPUSH ONE ×2 (15:50→17:36)
[2023-04-20] MEDS ORDERED: PROMETHAZINE HCL 25 MG/1 ML VIAL ONE (16:04)
[2023-04-20] MEDS: PROMETHAZINE HCL 25 MG/1 ML VIAL IVPB ONE (16:07)
[2023-04-20] MEDS ORDERED: PROMETHAZINE HCL 25 MG/1 ML VIAL IVPB PRN (16:55)
[2023-04-20] MEDS: SODIUM CHLORIDE 1,000 ML IV SCH (17:37)
[2023-04-20] MEDS ORDERED: PIPERACILLIN/TAZOB 4.5 GM 4.5 GM in DEXTROSE 5%-WATER 100 ML IVPB SCH (18:00)
[2023-04-20] MEDS: ACETAMINOPHEN 1000 MG/100 ML BAG IVPB PRN (18:05)
[2023-04-20] MEDS: ONDANSETRON 4 MG/2 ML VIAL IVPUSH PRN (18:20)
[2023-04-20] MEDS ORDERED: SULFAMETHOXAZOLE/TRIMETHOPRIM 800MG/160MG D.S. TABLET PO SCH (22:00)
[2023-04-21] MEDS: LEVOTHYROXINE NA 75 MCG TABLET (FP) PO SCH (06:07)
[2023-04-21] MEDS: ENOXAPARIN NA (PORCINE) 40 MG/0.4 ML DISP.SYRIN SQ SCH (10:03)
[2023-04-21] MEDS: predniSONE 10 MG TABLET (UD) PO SCH (10:10)
[2023-04-21] MEDS: ALLOPURINOL 300 MG TABLET (FP) PO SCH (10:11)
[2023-04-21] MEDS: NORTRIPTYLINE HCL 25 MG CAPSULE PO SCH (10:11)
[2023-04-21] MEDS: PANTOPRAZOLE 40 MG TABLET PO SCH (10:11)
[2023-04-21] MEDS ORDERED: LOSARTAN POTASSIUM 50 MG TABLET PO SCH (10:19)
[2023-04-21] MEDS ORDERED: VERAPAMIL HCL 240 MG E.R. TABLET PO SCH (10:20)
[2023-04-21] MEDS: VERAPAMIL HCL 240 MG E.R. TABLET PO SCH (10:49)
[2023-04-21] MEDS: LOSARTAN POTASSIUM 50 MG TABLET PO SCH ×2 (10:49→10:50)
[2023-04-21] MEDS: VERAPAMIL HCL 120 MG CAP SUSTAINED RELEASE PO SCH (10:50)
[2023-04-21 12:50] VITALS: RESP 18
[2023-04-21] MEDS: ACETAMINOPHEN 1000 MG/100 ML BAG IVPB ONE (15:13)
[2023-04-21] MEDS ORDERED: KETOROLAC TROMETHAMINE 10 MG TABLET PO SCH (18:00)
[2023-04-21] MEDS: ACETAMINOPHEN 325 MG TABLET (FP) PO SCH (21:33)
[2023-04-21] MEDS: POLYETHYLENE GLYCOL (HEALTHYLAX) 3350 17 GM PACKET PO SCH (21:33)
[2023-04-21] MEDS: SENNOSIDES 8.8 MG/5 ML SYRUP PO SCH (21:33)
[2023-04-22 08:49] VITALS: BP 138/90; PULSE 98; TEMP 98.7
[2023-04-22 11:00] LABS: BASO % 1.3 % (0-2.0); EOS % 3.2 % (0-4.5); HEMATOCRIT 38.4 % (32.4-45.2); HEMOGLOBIN 12.1 GM/dL (10.7-15.3); LYMPH % 20.9 % (8-40); MCH 27.4 pg (25.7-33.7); MCHC 31.6 g/dl (32.0-36.0); MEAN CELL VOLUME 86.7 fl (80-96); MEAN PLT VOLUME 9.1 fl (7.5-11.1); MONO % 8.9 % (3.8-10.2); NEUT % 65.7 % (42.8-82.8); PLATELET COUNT 254 10^3/uL (134-434); RBC 4.43 M/mm3 (3.60-5.2); RDW 17.8 % (11.6-15.6); WHITE BLOOD COUNT 7.8 K/mm3 (4.0-10.0)
[2023-04-22 11:23] LABS: POTASSIUM 3.4 mmol/L (3.5-5.1)
[2023-04-22 11:30] LABS: BLOOD UREA NITROGEN 15.5 mg/dL (7-18); CALCIUM 9.9 mg/dL (8.5-10.1)
[2023-04-22 11:31] LABS: ALBUMIN 3.4 g/dl (3.4-5.0)
[2023-04-22 11:34] LABS: CREATININE 0.9 mg/dL (0.55-1.3)
[2023-04-22 11:35] LABS: BILIRUBIN,TOTAL 0.5 mg/dL (0.2-1); TOT PROT 5.7 g/dl (6.4-8.2)
== END 2023-04-22 10:51 | disposition home or self-care (01) | DRG 419 ==
LOC: FER 20:00 → J6S 04-20 05:00
PROVIDERS: ADMIT Surgery; ATTEND Internal Medicine
PROC: 0FT44ZZ Resection of Gallbladder, Percutaneous Endoscopic Approach (ICD-10-PCS; principal; 2023-04-20 12:30)
DX: K80.00 Calculus of gallbladder with acute cholecystitis without obstruction (principal); M10.9 Gout, unspecified; E03.9 Hypothyroidism, unspecified; E78.5 Hyperlipidemia, unspecified; F32.A Depression, unspecified; F41.9 Anxiety disorder, unspecified; G62.9 Polyneuropathy, unspecified; M35.3 Polymyalgia rheumatica
CPT/HCPCS: 0241U-QW; 36415; 71045-TC-FY; 78227-TC; 80048; 80053; 82550; 83690; 84484; 85025; 85027; 85610; 86850; 86900; 86901; 88304-TC; 93005; 94760; 99285-25; A9537; J0131

== ENCOUNTER 2023-04-28 10:49 | Inpatient (IN) | payer OTHER, MEDICARE ==
[2023-04-28] MEDS ORDERED: METOCLOPRAMIDE HCL INJECTION 10 MG/2 ML VIAL ONE (11:51)
[2023-04-28] MEDS: SODIUM CHLORIDE 1,000 ML IV STA ×2 (12:15→15:56)
[2023-04-28] MEDS: METOCLOPRAMIDE HCL INJECTION 10 MG/2 ML VIAL IVPUSH ONE (12:15)
[2023-04-28 12:18] LABS: BASO % 0.4 % (0-2.0); EOS % 0.4 % (0-4.5); HEMATOCRIT 40.1 % (32.4-45.2); HEMOGLOBIN 13.1 GM/dL (10.7-15.3); LYMPH % 5.8 % (8-40); MCH 27.9 pg (25.7-33.7); MCHC 32.7 g/dl (32.0-36.0); MEAN CELL VOLUME 85.5 fl (80-96); MEAN PLT VOLUME 9.2 fl (7.5-11.1); MONO % 4.6 % (3.8-10.2); NEUT % 88.8 % (42.8-82.8); PLATELET COUNT 399 10^3/uL (134-434); RBC 4.69 M/mm3 (3.60-5.2); RDW 17.1 % (11.6-15.6); WHITE BLOOD COUNT 14.1 K/mm3 (4.0-10.0)
[2023-04-28 12:25] LABS: INR 1.17 (0.83-1.09); PROTHROMBIN TIME (PATIENT) 13.5 SEC (9.7-13.0)
[2023-04-28 12:28] LABS: VENOUS BASE EXCESS 0.8 mmol/L (-2-2); VENOUS O2 SATURATION 71.3 % (70-80); VENOUS PCO2 36.6 mmHg (38-52); VENOUS PH 7.445 (7.310-7.410)
[2023-04-28 12:28] LABS: ACTIVATED PTT 30.7 SECONDS (25.2-36.5)
[2023-04-28 12:35] LABS: POTASSIUM 3.6 mmol/L (3.5-5.1)
[2023-04-28 12:39] LABS: ALBUMIN 3.6 g/dl (3.4-5.0); BLOOD UREA NITROGEN 20.7 mg/dL (7-18); CALCIUM 10.8 mg/dL (8.5-10.1)
[2023-04-28 12:42] LABS: CREATININE 0.8 mg/dL (0.55-1.3)
[2023-04-28 12:44] LABS: BILIRUBIN,TOTAL 0.7 mg/dL (0.2-1); TOT PROT 6.8 g/dl (6.4-8.2)
[2023-04-28 13:33] LABS: EPI CELLS 9 /uL (0-25.1); HYALINE CASTS 1 /uL (0-3.1); PH,URINE 5.5 (5.0-8.0); URINE APPEARANCE CLEAR; URINE BACTERIA 30 /uL (0-1359); URINE BILIRUBIN NEGATIVE (NEGATIVE); URINE COLOR YELLOW; URINE GLUCOSE (UA) NEGATIVE (NEGATIVE); URINE KETONE 1+ (NEGATIVE); URINE LEUK ESTERASE 1+ (NEGATIVE); URINE NITRITE NEGATIVE (NEGATIVE); URINE PROTEIN 1+ (NEGATIVE); URINE RBC 10 /uL (0-23.9); URINE WBC 33 /uL (0-25.8)
[2023-04-28] MEDS ORDERED: ONDANSETRON 4 MG/2 ML VIAL ONE (14:22)
[2023-04-28] MEDS: ONDANSETRON 4 MG/2 ML VIAL IVPUSH ONE (14:25)
[2023-04-28] MEDS: CIPROFLOXACIN 400 MG/D5W 400 MG/200 ML IVPB IVPB ONE (18:43)
[2023-04-28] MEDS ORDERED: ACETAMINOPHEN INJECTION 100 ML IVPB ONE (19:44)
[2023-04-28] MEDS: ACETAMINOPHEN 1000 MG/100 ML BAG IVPB ONE (20:05)
[2023-04-28] MEDS ORDERED: VANCOMYCIN 1 GRAM (PRE-DOCKED) 1,000 MG/250 ML BAG IVPB ONE (20:32)
[2023-04-28] MEDS: VANCOMYCIN/WATER FOR INJ (PEG) 1,000 MG/200 ML BAG IVPB ONE (20:52)
[2023-04-29] MEDS: GABAPENTIN 300 MG CAPSULE PO PRN (02:34)
[2023-04-29 03:43] VITALS: BMI 28.0
[2023-04-29] MEDS: LEVOTHYROXINE NA 75 MCG TABLET (FP) PO SCH (06:35)
[2023-04-29] MEDS: LOSARTAN POTASSIUM 50 MG TABLET PO SCH (09:25)
[2023-04-29] MEDS: CEFTRIAXONE 1 GM in DEXTROSE 5%-WATER - 50 ML IVPB SCH (09:25)
[2023-04-29] MEDS: ENOXAPARIN NA (PORCINE) 40 MG/0.4 ML DISP.SYRIN SQ SCH (09:25)
[2023-04-29] MEDS: PANTOPRAZOLE 40 MG TABLET PO SCH (09:28)
[2023-04-29] MEDS: predniSONE 10 MG TABLET (UD) PO SCH (09:28)
[2023-04-29] MEDS: ALLOPURINOL 300 MG TABLET (FP) PO SCH (10:08)
[2023-04-29] MEDS: NORTRIPTYLINE HCL 25 MG CAPSULE PO SCH (10:08)
[2023-04-29] MEDS: VERAPAMIL HCL 240 MG E.R. TABLET PO SCH (10:08)
[2023-04-29 11:33] LABS: BASO % 1.2 % (0-2.0); EOS % 1.6 % (0-4.5); HEMATOCRIT 31.7 % (32.4-45.2); HEMOGLOBIN 10.6 GM/dL (10.7-15.3); LYMPH % 9.6 % (8-40); MCH 28.3 pg (25.7-33.7); MCHC 33.4 g/dl (32.0-36.0); MEAN CELL VOLUME 84.7 fl (80-96); MEAN PLT VOLUME 8.8 fl (7.5-11.1); NEUT % 78.6 % (42.8-82.8); PLATELET COUNT 302 10^3/uL (134-434); RBC 3.75 M/mm3 (3.60-5.2); RDW 16.9 % (11.6-15.6); WHITE BLOOD COUNT 10.7 K/mm3 (4.0-10.0)
[2023-04-29 11:46] LABS: POTASSIUM 3.2 mmol/L (3.5-5.1)
[2023-04-29 11:49] LABS: ALBUMIN 2.9 g/dl (3.4-5.0); BLOOD UREA NITROGEN 15.6 mg/dL (7-18); MAGNESIUM 1.4 mg/dL (1.8-2.4)
[2023-04-29 11:52] LABS: CREATININE 0.6 mg/dL (0.55-1.3); PHOSPHOROUS 2.5 mg/dL (2.5-4.9)
[2023-04-29 11:53] LABS: BILIRUBIN,TOTAL 0.5 mg/dL (0.2-1); TOT PROT 5.2 g/dl (6.4-8.2)
[2023-04-29 11:56] LABS: CALCIUM 8.9 mg/dL (8.5-10.1)
[2023-04-29] MEDS: POTASSIUM CHLORIDE ORAL LIQUID 20 MEQ/15 ML PO ONE (13:59)
[2023-04-29] MEDS: MAGNESIUM 2GM/50ML STERILE WATER IVPB IVPB ONE (13:59)
[2023-04-29] MEDS: PROCHLORPERAZINE MALEATE 5 MG TABLET PO ONE (14:16)
[2023-04-29] MEDS: ACETAMINOPHEN 1000 MG/100 ML BAG IVPB ONE (23:56)
[2023-04-30 10:20] LABS: BASO % 1.1 % (0-2.0); EOS % 1.4 % (0-4.5); HEMATOCRIT 32.8 % (32.4-45.2); LYMPH % 12.3 % (8-40); MCH 28.4 pg (25.7-33.7); MCHC 33.4 g/dl (32.0-36.0); MEAN CELL VOLUME 84.9 fl (80-96); MEAN PLT VOLUME 9.1 fl (7.5-11.1); MONO % 7.2 % (3.8-10.2); PLATELET COUNT 346 10^3/uL (134-434); RBC 3.86 M/mm3 (3.60-5.2); RDW 16.8 % (11.6-15.6); WHITE BLOOD COUNT 10.3 K/mm3 (4.0-10.0)
[2023-04-30 10:38] LABS: POTASSIUM 3.3 mmol/L (3.5-5.1)
[2023-04-30 10:45] LABS: ALBUMIN 3.1 g/dl (3.4-5.0); BLOOD UREA NITROGEN 14.2 mg/dL (7-18); MAGNESIUM 1.6 mg/dL (1.8-2.4)
[2023-04-30 10:48] LABS: CREATININE 0.7 mg/dL (0.55-1.3); PHOSPHOROUS 2.2 mg/dL (2.5-4.9)
[2023-04-30 10:50] LABS: BILIRUBIN,TOTAL 0.4 mg/dL (0.2-1); TOT PROT 5.4 g/dl (6.4-8.2)
[2023-04-30] MEDS: ONDANSETRON 4 MG/2 ML VIAL IVPUSH PRN ×2 (14:42→17:13)
[2023-04-30] MEDS ORDERED: KCL 10 MEQ IVPB 10 MEQ/100 ML INFUS.BAG IVPB SCH (17:30)
[2023-04-30] MEDS: MAGNESIUM SULFATE IN WATER 2 GM/50 ML IVPB IVPB ONE (17:48)
[2023-04-30] MEDS: NAPH,MB-DB/K PH,MBDB POWDER PACKET PO ONE (17:48)
[2023-04-30] MEDS ORDERED: POTASSIUM CHLORIDE TABS 20 MEQ TABLET.ER (FP) PO ONE (18:23)
[2023-05-01 04:41] VITALS: RESP 18
[2023-05-01 09:12] LABS: BASO % 0.7 % (0-2.0); EOS % 1.3 % (0-4.5); HEMATOCRIT 31.6 % (32.4-45.2); HEMOGLOBIN 10.3 GM/dL (10.7-15.3); LYMPH % 13.6 % (8-40); MCH 28.1 pg (25.7-33.7); MCHC 32.6 g/dl (32.0-36.0); MEAN PLT VOLUME 9.2 fl (7.5-11.1); MONO % 7.9 % (3.8-10.2); NEUT % 76.5 % (42.8-82.8); PLATELET COUNT 333 10^3/uL (134-434); RBC 3.68 M/mm3 (3.60-5.2); RDW 16.5 % (11.6-15.6); WHITE BLOOD COUNT 9.6 K/mm3 (4.0-10.0)
[2023-05-01 09:48] LABS: ALBUMIN 2.9 g/dl (3.4-5.0); BLOOD UREA NITROGEN 15.7 mg/dL (7-18); CALCIUM 9.4 mg/dL (8.5-10.1); MAGNESIUM 1.8 mg/dL (1.8-2.4)
[2023-05-01 09:51] LABS: CREATININE 0.7 mg/dL (0.55-1.3)
[2023-05-01 09:52] LABS: PHOSPHOROUS 2.1 mg/dL (2.5-4.9)
[2023-05-01 09:53] LABS: BILIRUBIN,TOTAL 0.4 mg/dL (0.2-1); TOT PROT 5.2 g/dl (6.4-8.2)
[2023-05-01] MEDS: POTASSIUM CHLORIDE TABS 20 MEQ TABLET.ER (FP) PO SCH (11:53)
[2023-05-02 12:43] LABS: EOS % 1.2 % (0-4.5); HEMATOCRIT 31.8 % (32.4-45.2); HEMOGLOBIN 10.7 GM/dL (10.7-15.3); INR 1.45 (0.83-1.09); LYMPH % 12.5 % (8-40); MCH 28.4 pg (25.7-33.7); MCHC 33.5 g/dl (32.0-36.0); MEAN CELL VOLUME 84.6 fl (80-96); MONO % 7.9 % (3.8-10.2); NEUT % 77.4 % (42.8-82.8); PLATELET COUNT 317 10^3/uL (134-434); PROTHROMBIN TIME (PATIENT) 16.8 SEC (9.7-13.0); RBC 3.76 M/mm3 (3.60-5.2); RDW 16.7 % (11.6-15.6); WHITE BLOOD COUNT 8.2 K/mm3 (4.0-10.0)
[2023-05-02 13:03] LABS: POTASSIUM 3.7 mmol/L (3.5-5.1)
[2023-05-02 13:06] LABS: BLOOD UREA NITROGEN 15.3 mg/dL (7-18); CALCIUM 9.3 mg/dL (8.5-10.1)
[2023-05-02 13:10] LABS: CREATININE 0.7 mg/dL (0.55-1.3)
[2023-05-02 13:12] LABS: BILIRUBIN,TOTAL 0.5 mg/dL (0.2-1)
[2023-05-02 14:47] VITALS: BP 149/86; PULSE 105; TEMP 98
== END 2023-05-02 15:25 | disposition home or self-care (01) | DRG 392 ==
LOC: JER 10:49 → JERBED 16:14 → J6S 04-29 00:22
PROVIDERS: ADMIT Internal Medicine; ATTEND Internal Medicine
DX: R11.2 Nausea with vomiting, unspecified (principal); K57.92 Diverticulitis of intestine, part unspecified, without perforation or abscess without bleeding; I10 Essential (primary) hypertension; E03.9 Hypothyroidism, unspecified; F41.8 Other specified anxiety disorders; M10.9 Gout, unspecified; G62.9 Polyneuropathy, unspecified; E87.6 Hypokalemia; M35.3 Polymyalgia rheumatica; D25.9 Leiomyoma of uterus, unspecified; R10.13 Epigastric pain; R51.9 Headache, unspecified; E78.5 Hyperlipidemia, unspecified; Z98.890 Other specified postprocedural states; Z20.89 Contact with and (suspected) exposure to other communicable diseases
CPT/HCPCS: 0241U-QW; 36415; 71045-TC-FY; 74177-TC; 80053; 81003; 82533; 82803; 83605; 83735; 84100; 84484; 85025; 85610; 85651; 85730; 86140; 86850; 86900; 86901; 87040; 87086; 93005; 93010; 99285-25; J0131; Q9967

== ENCOUNTER 2023-05-04 04:19 | Day surgery (SDC) | payer OTHER, MEDICARE ==
[2023-05-03 09:17] VITALS: BMI 28.0
[2023-05-04 09:32] VITALS: RESP 18
[2023-05-04 14:31] VITALS: BP 130/78; PULSE 70; TEMP 98
== END 2023-05-04 13:43 | disposition home or self-care (01) ==
LOC: JRADIR 04:19
PROVIDERS: ATTEND Internal Medicine
PROC: 009U3ZX Drainage of Spinal Canal, Percutaneous Approach, Diagnostic (ICD-10-PCS; principal; 2023-05-04)
PROC: B01BZZZ Fluoroscopy of Spinal Cord (ICD-10-PCS; 2023-05-04)
DX: R51.9 Headache, unspecified (principal); Z53.8 Procedure and treatment not carried out for other reasons
CPT/HCPCS: 62272

== ENCOUNTER 2023-05-17 04:40 | Day surgery (SDC) | payer OTHER, MEDICARE ==
[2023-05-11 11:53] VITALS: BMI 28.0
[2023-05-17 12:35] VITALS: RESP 18
[2023-05-17] MEDS ORDERED: ACETAMINOPHEN 325 MG TABLET (FP) ONE (13:23)
[2023-05-17] MEDS: ACETAMINOPHEN 325 MG TABLET (FP) PO ONE (13:30)
[2023-05-17 13:32] VITALS: BP 126/72; PULSE 92; TEMP 97.4
[2023-05-17 14:49] LABS: BF GLUCOSE (CSF ONLY) 59 mg/dL (40-70)
[2023-05-17 14:59] LABS: CSF COLOR XANTHOCHROMIC (COLORLESS)
[2023-05-17 15:02] LABS: CSF APPEARANCE CLEAR (CLEAR)
[2023-05-17 15:21] LABS: CSF WBC 15 mm3 (0-5)
== END 2023-05-17 14:00 | disposition home or self-care (01) ==
LOC: JRADIR 04:40
PROVIDERS: ATTEND Internal Medicine
PROC: 009U3ZX Drainage of Spinal Canal, Percutaneous Approach, Diagnostic (ICD-10-PCS; principal; 2023-05-17)
PROC: B01BZZZ Fluoroscopy of Spinal Cord (ICD-10-PCS; 2023-05-17)
DX: R51.9 Headache, unspecified (principal)
CPT/HCPCS: 36415; 62272; 82945; 84157; 87070; 87102; 87205; 87210

== ENCOUNTER → 2023-05-20 | Day surgery (SDC) | payer OTHER, MEDICARE | END | disposition home or self-care (01) | LOC: JRADIR 09:11 | PROVIDERS: ATTEND Internal Medicine | PROC: 02HV33Z Insertion of Infusion Device into Superior Vena Cava, Percutaneous Approach (ICD-10-PCS; principal; 2023-05-20) | PROC: B518ZZA Fluoroscopy of Superior Vena Cava, Guidance (ICD-10-PCS; 2023-05-20) | DX: G03.8 Meningitis due to other specified causes (principal) | CPT/HCPCS: 36569; 87899 ==